=== PATIENT | female | born 1975 | race Two or more races ===

== ENCOUNTER 2016-05-14 12:32 | Emergency (ER) | payer MEDICAID, OTHER ==
[~2016-05-14] VITALS: Ht 154.9 cm; Wt 68.9 kg
[2016-05-14] MEDS ORDERED: METFORMIN HCL500 M1 ORAL (13:05)
[2016-05-14] MEDS ORDERED: CALCIUM 1,0001 EAC1 PO (13:05)
[2016-05-14] MEDS ORDERED: VITAMIN D1000 UNI1 ORAL (13:05)
--- NOTE | 2016-05-14 13:17 | Emergency Room Report ---
History of Present Illness General Chief Complaint: Female Urogenital Problems Source: Patient Present Illness HPI 40-year-old female presents to emergency Department complaining of intermittent heavy bleeding and spotting times one and a half months. described as dark red blood with clots, pt. states some days she uses just three thin panty liners, and some days may required thicker absorbency pads. Patient states on occasion she will have lower abdominal cramping 4/10 in severity, and it radiates to the low back. Denies N/V/F/C. Patient also reports increasing fatigue, increased hours of sleep and being more emotional than normal. The patient denies at this time patient denies history of fibroids patient states she used to have a regular period however over the past 2 years her. It is no longer regular. Patient was seen by her primary care doctor who recommended that she visited the ER for evaluation of anemia. Denies itching or rashes, frequency, urgency, hematuria, or dysuria. Denies CP, Palpitations, LOC, AMS, dizziness, Changes in Vision, Sensation, paresthesias, or a sudden severe headache. Allergies: Coded Allergies: No Known Allergies (Unverified , 05/14/16) Patient History Past Medical History: see triage record Past Surgical History: none Pertinent Family History: none Now: No : 2 Para: 2 Reviewed Nursing Documentation: PMH: Agreed, PSxH: Agreed Nursing Documentation-PMH Hx Diabetes: Yes Review of Systems All Other Systems: negative except mentioned in HPI Physical Exam Vital Signs Date Time Temp Pulse Resp B/P Pulse Ox O2 Delivery O2 Flow Rate FiO2 05/14/16 12:56 98.8 75 16 119/75 100 Room Air Sp02 EP Interpretation: reviewed, normal General Appearance: no apparent distress, alert, GCS 15, non-toxic Head: normocephalic, atraumatic Eyes: bilateral eye PERRL, bilateral eye normal inspection ENT: hearing grossly normal, normal pharynx, no angioedema, normal voice Neck: full range of motion, supple/symm/no masses Respiratory: chest non-tender, lungs clear, normal breath sounds, speaking full sentences Cardiovascular #1: regular rate, rhythm, no edema Gastrointestinal: normal bowel sounds, non tender, soft, no guarding, no rebound Rectal: deferred Genitourinary: normal inspection, no CVA tenderness Musculoskeletal: back normal, gait/station normal, normal range of motion, non- tender, no calf tenderness Neurologic: alert, oriented x3, responsive, motor strength/tone normal, sensory intact, speech normal Psychiatric: judgement/insight normal, memory normal, mood/affect normal, no suicidal/homicidal ideation Skin: normal color, no rash, warm/dry, well hydrated Lymphatic: no adenopathy Medical Decision Making PA Attestation Dr. valdes is my supervising Physician whom patient management has been discussed with. Diagnostic Impression: Primary Impression: DUB (dysfunctional uterine bleeding) Additional Impression: Anemia Qualified Codes: D50.0 - Iron deficiency anemia secondary to blood loss ( chronic) ER Course Pt. presents to the ED c/o vaginal bleeding: x a month and a half. with increased fatigue and sleep hours. described as dark red blood with clots, pt. states some days she uses just three thin panty liners, and some days may required thicker absorbency pads. Ddx considered but are not limited to: Fibroid, ectopic , Malignancy, Spontaneous , , DUB Vital signs: are WNL, pt. is afebrile H&PE are most consistent with: DUB, will r/o significant anemia requiring blood transfusion. in addition to UTI and . ORDERS: -UA: WNL other than RBC's and occult blood secondary from vaginal contamination. -CBC: hgb of 11.5 and hct of consistent with anemia, however does not warrant transfusion. ED INTERVENTIONS: None at this time. -D/W pt. to follow up with her OBGYN for US. suspicious for fibroid. will place pt. on PO iron supplements. DISCHARGE: At this time pt. is stable for d/c to home. Will provide printed patient care instructions, and any necessary prescriptions. Care plan and follow up instructions have been discussed with the patient prior to discharge. Labs Test 05/14/16 13:24 White Blood Count 8.4 K/UL (4.8-10.8) Red Blood Count 3.41 M/UL (4.20-5.40) Hemoglobin 11.7 G/DL (12.0-16.0) Hematocrit 32.5 % (37.0-47.0) Mean Corpuscular Volume 95 FL (80-99) Mean Corpuscular Hemoglobin 34.2 PG (27.0-31.0) Mean Corpuscular Hemoglobin Concent 35.9 G/DL (32.0-36.0) Red Cell Distribution Width 11.9 % (11.6-14.8) Platelet Count 291 K/UL (150-450) Mean Platelet Volume 7.6 FL (6.5-10.1) Neutrophils (%) (Auto) 63.3 % (45.0-75.0) Lymphocytes (%) (Auto) 28.3 % (20.0-45.0) Monocytes (%) (Auto) 5.5 % (1.0-10.0) Eosinophils (%) (Auto) 1.7 % (0.0-3.0) Basophils (%) (Auto) 1.2 % (0.0-2.0) Urine Color Yellow Urine Appearance Clear Urine pH 5 (4.5-8.0) Urine Specific [place] 1.020 (1.005-1.035) Urine Protein Negative (NEGATIVE) Urine Glucose (UA) Negative (NEGATIVE) Urine Ketones Negative (NEGATIVE) Urine Occult Blood 4+ (NEGATIVE) Urine Nitrite Negative (NEGATIVE) Urine Bilirubin Negative (NEGATIVE) Urine Urobilinogen Normal MG/DL (0.0-1.0) Urine Leukocyte Esterase 1+ (NEGATIVE) Urine RBC 5-10 /HPF (0 - 2) Urine WBC 2-4 /HPF (0 - 2) Urine Squamous Epithelial Cells Few /LPF (NONE/OCC) Urine Bacteria Few /HPF (NONE) Urine HCG, Qualitative Negative Labs Test 05/14/16 13:24 White Blood Count 8.4 K/UL (4.8-10.8) Red Blood Count 3.41 M/UL (4.20-5.40) Hemoglobin 11.7 G/DL (12.0-16.0) Hematocrit 32.5 % (37.0-47.0) Mean Corpuscular Volume 95 FL (80-99) Mean Corpuscular Hemoglobin 34.2 PG (27.0-31.0) Mean Corpuscular Hemoglobin Concent 35.9 G/DL (32.0-36.0) Red Cell Distribution Width 11.9 % (11.6-14.8) Platelet Count 291 K/UL (150-450) Mean Platelet Volume 7.6 FL (6.5-10.1) Neutrophils (%) (Auto) 63.3 % (45.0-75.0) Lymphocytes (%) (Auto) 28.3 % (20.0-45.0) Monocytes (%) (Auto) 5.5 % (1.0-10.0) Eosinophils (%) (Auto) 1.7 % (0.0-3.0) Basophils (%) (Auto) 1.2 % (0.0-2.0) Urine Color Yellow Urine Appearance Clear Urine pH 5 (4.5-8.0) Urine Specific [place] 1.020 (1.005-1.035) Urine Protein Negative (NEGATIVE) Urine Glucose (UA) Negative (NEGATIVE) Urine Ketones Negative (NEGATIVE) Urine Occult Blood 4+ (NEGATIVE) Urine Nitrite Negative (NEGATIVE) Urine Bilirubin Negative (NEGATIVE) Urine Urobilinogen Normal MG/DL (0.0-1.0) Urine Leukocyte Esterase 1+ (NEGATIVE) Urine HCG, Qualitative Negative Last Vital Signs Date Time Temp Pulse Resp B/P Pulse Ox O2 Delivery O2 Flow Rate FiO2 05/14/16 12:56 98.8 75 16 119/75 100 Room Air Disposition: HOME, SELF-CARE Condition: Stable Scripts Ferrous Sulfate* (FERROUS SULFATE*) 325 Mg Tablet 325 MG ORAL TWICE A DAY for 30 Days, #60 TAB 0 Refills Prov: Vika Storey 05/14/16 Ibuprofen* (MOTRIN*) 400 Mg Tablet 400 MG ORAL THREE TIMES A DAY, #30 TAB 0 Refills Prov: Vika Storey 05/14/16 Referrals: [facility],REFERRING (PCP) Patient Instructions: Dysfunctional Uterine Bleeding Additional Instructions: Take medications as directed. Follow up with OBGYN in 3-5 days Return sooner to ED if new symptoms occur, or current symptoms become worse. Vika Storey May 14, 2016 13:17
[2016-05-14 13:30] VITALS: BP 111/69
[2016-05-14 13:42] LABS: BASOPHILS % (AUTO) 1.2 % (0.0-2.0); EOSINOPHILS % (AUTO) 1.7 % (0.0-3.0); LYMPHOCYTES % (AUTO) 28.3 % (20.0-45.0); MEAN CORPUSCULAR HEMOGLOBIN 34.2 PG (27.0-31.0); MEAN CORPUSCULAR HGB CONC 35.9 G/DL (32.0-36.0); MEAN CORPUSCULAR VOLUME 95 FL (80-99); MEAN PLATELET VOLUME 7.6 FL (6.5-10.1); MONOCYTES % (AUTO) 5.5 % (1.0-10.0); NEUTROPHILS % (AUTO) 63.3 % (45.0-75.0); PLATELET COUNT 291 K/UL (150-450); RED BLOOD COUNT 3.41 M/UL (4.20-5.40); RED CELL DISTRIBUTION WIDTH 11.9 % (11.6-14.8); WHITE BLOOD COUNT 8.4 K/UL (4.8-10.8)
[2016-05-14 13:43] LABS: APPEARANCE,URINE CLEAR; KETONES,URINE NEGATIVE (NEGATIVE); LEUKOCYTE ESTERASE ,URINE 1+ (NEGATIVE); NITRITE,URINE NEGATIVE (NEGATIVE); PH,URINE 5 (4.5-8.0); PROTEIN,URINE NEGATIVE (NEGATIVE); UROBILINOGEN,URINE NORMAL MG/DL (0.0-1.0)
[2016-05-14 14:08] LABS: BACTERIA,URINE FEW /HPF; SQUAMOUS EPITHELIAL CELL,UR FEW /LPF (NONE/OCC)
[2016-05-14] MEDS ORDERED: IBUPROFEN400 MG ORAL (14:13)
[2016-05-14] MEDS ORDERED: FERROUS SULFAT325 MG ORAL (14:13)
[2016-05-14 14:20] VITALS: BP 111/69
== END 2016-05-14 14:20 | disposition home or self-care (01) ==
LOC: EMR 13:03
DX: N93.8 Other specified abnormal uterine and vaginal bleeding (principal); D50.0 Iron deficiency anemia secondary to blood loss (chronic); E11.9 Type 2 diabetes mellitus without complications
CPT/HCPCS: 36415; 81003; 81025; 85025; 99284

== ENCOUNTER 2016-05-23 14:17 | Emergency (ER) | payer BC, OTHER ==
[~2016-05-23] VITALS: Ht 154.9 cm; Wt 68.9 kg
[~2016-05-23 14:17] MED LIST: CALCIUM 1,0001 EAC1 PO; FERROUS SULFAT325 MG ORAL; IBUPROFEN400 MG ORAL; METFORMIN HCL500 M1 ORAL; VITAMIN D1000 UNI1 ORAL
[2016-05-23] MEDS ORDERED: VITAMIN C500 M1 ORAL (14:51)
[2016-05-23 16:04] LABS: EOSINOPHILS % (AUTO) 2.2 % (0.0-3.0); LYMPHOCYTES % (AUTO) 36.4 % (20.0-45.0); MEAN CORPUSCULAR HGB CONC 35.6 G/DL (32.0-36.0); MEAN CORPUSCULAR VOLUME 96 FL (80-99); MEAN PLATELET VOLUME 6.9 FL (6.5-10.1); MONOCYTES % (AUTO) 7.2 % (1.0-10.0); NEUTROPHILS % (AUTO) 53.2 % (45.0-75.0); PLATELET COUNT 258 K/UL (150-450); RED BLOOD COUNT 3.17 M/UL (4.20-5.40); RED CELL DISTRIBUTION WIDTH 11.5 % (11.6-14.8); WHITE BLOOD COUNT 6.2 K/UL (4.8-10.8)
[2016-05-23 16:09] LABS: APPEARANCE,URINE CLEAR; KETONES,URINE NEGATIVE (NEGATIVE); LEUKOCYTE ESTERASE ,URINE NEGATIVE (NEGATIVE); NITRITE,URINE NEGATIVE (NEGATIVE); PH,URINE 5 (4.5-8.0); PROTEIN,URINE NEGATIVE (NEGATIVE); UROBILINOGEN,URINE NORMAL MG/DL (0.0-1.0)
[2016-05-23 16:11] VITALS: BP 141/79
[2016-05-23 16:26] LABS: ALANINE AMINOTRANSFERASE 11 U/L (3-33); ALBUMIN/GLOBULIN RATIO 1.4 (1.0-2.7); ANION GAP 17 (5-15); ASPARTATE AMINO TRANSFERASE 16 U/L (5-40); CALCIUM 9.2 mg/dL (8.6-10.2); CARBON DIOXIDE 21 mEQ/L (20-30); CHLORIDE 102 mEQ/L (98-107); CREATININE 0.6 mg/dL (0.5-0.9); GLOMERULAR FILTRATION RATE > 60 mL/min (>60); HEMOLYSIS 7; POTASSIUM 3.8 mEQ/L (3.4-4.9); SODIUM 140 mEQ/L (135-145); TOTAL PROTEIN 7.1 g/dL (6.6-8.7)
[2016-05-23 16:28] LABS: BACTERIA,URINE FEW /HPF; SQUAMOUS EPITHELIAL CELL,UR FEW /LPF (NONE/OCC); WBC,URINE 0-2 /HPF (0 - 2)
--- NOTE | 2016-05-23 18:08 | Emergency Room Report ---
History of Present Illness General Chief Complaint: Female Urogenital Problems Source: Patient, Medical Record Present Illness HPI 40 YO F with known uterine fibroids presents with 2nd visit to ED in ~1 week for excessive painless vaginal bleeding. States using a new pad every 2 hours. Associated with mild dizziness today but denies chest pain, SOB, other urinary complaints. Denies chance of being . Denies previous abd/pelvic surgeries. Denies other medical problems. On previous visits, lab tests showed stable H&H. Patient was discharged with recommendation for TOP EXECUTIVE followup but did not do so because "my 's health insurance just changed." Allergies: Coded Allergies: No Known Allergies (Unverified , 05/14/16) Patient History Past Medical History: other - uterine fibroids Past Surgical History: none Pertinent Family History: none Social History: Denies: alcohol use, drug use, smoking Now: No : 2 Para: 2 Reviewed Nursing Documentation: PMH: Agreed, PSxH: Agreed Nursing Documentation-PMH Hx Diabetes: Yes Review of Systems All Other Systems: negative except mentioned in HPI Physical Exam Vital Signs Date Time Temp Pulse Resp B/P Pulse Ox O2 Delivery O2 Flow Rate FiO2 05/23/16 14:42 98.4 74 16 137/76 99 Room Air Sp02 EP Interpretation: reviewed, normal General Appearance: normal inspection, well appearing, no apparent distress, alert, GCS 15, non-toxic Head: normocephalic, atraumatic Eyes: bilateral eye EOMI, bilateral eye PERRL ENT: normal ENT inspection, hearing grossly normal, normal voice Neck: normal inspection, full range of motion, supple, no bony tend Respiratory: normal inspection, lungs clear, normal breath sounds, no respiratory distress, no retraction, no wheezing Cardiovascular #1: regular rate, rhythm, no edema Gastrointestinal: normal inspection, normal bowel sounds, non tender, soft, no guarding, no hernia Genitourinary: no CVA tenderness Musculoskeletal: normal inspection, back normal, normal range of motion, Karen' s Sign negative Neurologic: normal inspection, alert, oriented x3, responsive, deputy [place] marshal III-XII nml as tested, speech normal Psychiatric: normal inspection, judgement/insight normal, mood/affect normal Skin: normal inspection, normal color, no rash Lymphatic: normal inspection Medical Decision Making Diagnostic Impression: Primary Impression: Uterine fibroid Qualified Codes: D25.9 - Leiomyoma of uterus, unspecified Additional Impression: Vaginal bleeding ER Course 40 YO F with vaginal bleeding, likely from known uterine fibroids. VSS. Afebrile. H&H stable. Coags normal. Platelets normal. UA with + blood, no UTI Sono with multiple myometrial fibroids on quality analyst/technical writer verbal and written report. Official review by Radiologist was not available at time of discharge. Vaginal bleeding likely due to fibroids Patient feels better after IVF hydration. Denies any more dizziness or other symptoms Gave patient copy of labs, sono tech's report. Strongly advised Clinical Operations Consultant followup in next 1 week for followup Last Vital Signs Date Time Temp Pulse Resp B/P Pulse Ox O2 Delivery O2 Flow Rate FiO2 05/23/16 16:11 98.3 76 15 141/79 99 Room Air Status: improved Disposition: HOME, SELF-CARE Referrals: JULIAN BRAUN M.D. (PCP) MARIA ALEJANDRA SALMERON M.D. May 23, 2016 18:08
[2016-05-23 18:28] VITALS: BP 138/81
[2016-05-23 18:29] VITALS: BP 138/81
--- NOTE | 2016-05-24 11:04 | Diagnostic Imaging Report ---
Indication: Vaginal bleeding for 2 months especially in the last 7 days Technique: Transabdominal and transvaginal images Comparison: 01/20/2008 Findings: Uterus is retroverted. It measures 8.9 cm length by 5.8 cm AP. There is a small cervical nabothian cyst noted. Endometrium measures up to 19 mm thick. Left ovary measures 3.1 cm length. Tiny cystic areas are noted within the endometrium. Small myometrial fibroids demonstrated. Right ovary measures 5.8 cm length. Adjacent to the left ovary is a questionable small non-peristalsing tubular structure which measures 18 x 8 mm. The right ovary demonstrates a 4.5 cm cyst. No free cul-de-sac fluid. Impression: Questionable small tubular structure adjacent to the right ovary. Suspect that this is just an aperistaltic segment of adjacent bowel, but small hydrosalpinx not completely excludable. Consider followup sonography, as clinically indicated Thickened endometrium with small cystic spaces, raises possibility of cystic endometrial hyperplasia. Another possibility is adenomyosis, deemed less likely as this is appear to be endometrial rather than subendometrial. MRI may be useful to clarify, as clinically indicated 4.5 cm right ovarian cyst, probably a benign functional cyst. Short interval sonography at 6-8 weeks is recommended
== END 2016-05-23 18:30 | disposition home or self-care (01) ==
LOC: EMR 16:15 → EDBEDREQ 16:18 → CANBEDREQ 18:02 → EMR 18:30
DX: D25.9 Leiomyoma of uterus, unspecified (principal); N88.8 Other specified noninflammatory disorders of cervix uteri; R93.8 Abnormal findings on diagnostic imaging of other specified body structures
CPT/HCPCS: 36415; 76830; 76856; 80053; 81003; 85025; 85610; 85730; 86850; 86900; 86901; 96374